=== PATIENT | female | born 1970 | race African-American/Black ===

== ENCOUNTER 2019-10-30 14:28 | Emergency (ER) | payer BC ==
[~2019-10-30] VITALS: Ht 157.5 cm; Wt 80.7 kg
[2019-10-30 14:49] LABS: ABSOLUTE NEUTROPHILS 3.9 thou/uL (1.4-8.2); BASOPHILS 0.9 % (0.0-2.0); EOSINOPHILS 1.3 % (0.0-3.0); HEMATOCRIT 43.5 % (37.0-47.0); HEMOGLOBIN 14.7 gm/dL (12.0-15.0); LYMPHOCYTES 38.6 % (24.0-44.0); MCH 32.4 pg (26.0-34.0); MCHC 33.7 g/dL (28.0-37.0); MCV 96.1 fL (80.0-100.0); MONOCYTES 8.9 % (1.0-8.0); PLATELET COUNT 290 thou/uL (150-400); POLYS 50.3 % (36.0-66.0); RBC 4.53 mil/uL (4.20-5.00); RDW 13.5 % (10.5-14.5); WBC 7.7 thou/uL (4.0-11.0)
[2019-10-30 14:57] LABS: ANION GAP 12 mmol/L (7-16); BUN 15 mg/dL (7-18); CALCIUM 9.8 mg/dL (8.5-10.1); CHLORIDE 103 mmol/L (98-107); CO2 24 mmol/L (21-32); GLUCOSE 106 mg/dL (74-106); POTASSIUM 3.9 mmol/L (3.5-5.1); SODIUM 139 mmol/L (136-145)
[2019-10-30 15:03] LABS: ALBUMIN 4.4 g/dL (3.4-5.0); SGOT 21 U/L (15-37); SGPT 26 U/L (30-65); TOTAL BILIRUBIN 0.5 mg/dL (<0.1-1.0); TROPONIN-I <0.06 ng/mL (<0.06)
[2019-10-30 17:26] VITALS: BP 139/74
--- NOTE | 2019-11-02 15:54 | EKG ---
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
--- NOTE | 2019-11-02 15:58 | EKG ---
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1970 Requested By: Kurt Han Order Number: [id number] MD: Nicola Magaña Measurements Intervals [place] Rate: 87 P: 47 [place]: 139 QRS: 65 QRSD: 119 T: 49 QT: 374 QTc: 450 Interpretive Statements Sinus rhythm Probable left atrial enlargement Nonspecific intraventricular conduction delay ST elev, probable normal early repol pattern No previous ECG available for comparison Electronically Signed On 11-02-2019 15:58:25 USER SUPPORT ANALYST by Nicola Magaña [email or web address] <ELECTRONICALLY SIGNED> By: Nicola Magaña MD 11/02/19 1558 1609 08 Nicola Magaña MD /VIPIN
== END 2019-10-30 17:31 | disposition home or self-care (01) ==
LOC: ER 14:28
PROVIDERS: Emergency Medicine
DX: R07.89 Other chest pain (principal); F17.210 Nicotine dependence, cigarettes, uncomplicated

== ENCOUNTER 2020-09-26 16:52 | Emergency (ER) | payer BC ==
[~2020-09-26] VITALS: Ht 160 cm; Wt 81.7 kg
[2020-09-26 18:58] VITALS: BP 175/93
== END 2020-09-26 18:58 | disposition left against medical advice (07) ==
LOC: ER 16:52
DX: R42 Dizziness and giddiness (principal); Z53.21 Procedure and treatment not carried out due to patient leaving prior to being seen by health care provider